=== PATIENT | female | born 1960 | race Caucasian/White ===

== ENCOUNTER → 2019-04-14 11:41 | Outpatient (CLI) | payer MEDICARE ==
[~2019-04-14 11:41] MED LIST: ESKALITH CR450 M1 PO; ESTRACE 0.5 MG0.5 MG PO; LEVOTHYROXINE50 MCG PO; RISPERDAL1 MG PO; XANAX0.5 MG PO
[2019-04-15 08:11] LABS: IMMUNOGLOBULIN A 221 mg/dL (87-352); IMMUNOGLOBULIN G 776 mg/dL (700-1600); IMMUNOGLOBULIN M 76 mg/dL (26-217)
[2019-04-15 08:40] VITALS: BMI 24.3
[2019-04-15 11:10] LABS: ANA REFLEX - DIRECT Negative (Negative)
[2019-04-16 06:09] LABS: IGG SUBCLASS 1 355 mg/dL (248-810); IGG SUBCLASS 2 289 mg/dL (130-555); IGG SUBCLASS 3 75 mg/dL (15-102); IGG SUBCLASS 4 5 mg/dL (2-96); IGGS - IGG SERUM 820 mg/dL (700-1600)
[2019-04-16 09:11] LABS: ANTI-GLOMERULAR BASMENT MEMBRN 2 units (0-20)
[2019-04-16 14:09] LABS: ANCA - ANTIMYELOPEROXIDASE <9.0 U/mL (0.0-9.0); ANCA - ANTIPROTEINASE 3 <3.5 U/mL (0.0-3.5); ANCA - ATYPICAL <1:20 titer (Neg:<1:20); ANCA - CYTOPLASMIC <1:20 titer (Neg:<1:20); ANCA - PERINUCLEAR <1:20 titer (Neg:<1:20)
[2019-04-18 18:07] LABS: IMMUNOGLOBULIN E 26 IU/mL (6-495)
== END | disposition home or self-care (01) ==
LOC: D.LABREF 11:41
PROVIDERS: ATTEND Internal Medicine Pulmonary Disease
DX: J18.9 Pneumonia, unspecified organism (principal); R04.2 Hemoptysis

== ENCOUNTER 2019-04-15 07:22 | Outpatient (CLI) | payer MEDICARE ==
[~2019-04-15] VITALS: Ht 172.7 cm; Wt 72.7 kg
[2019-04-15 07:45] LABS: BASOPHILS 0.3 % (0-2); EOSINOPHILS 4.5 % (0-7); HEMATOCRIT 40.8 % (36.0-48.0); HEMOGLOBIN 12.8 g/dL (12-16); IMMATURE GRANULOCYTES 0.3 % (0-5); LYMPHOCYTES 21.2 % (15-50); MCH 30.5 pg (26.0-34.0); MCHC 31.4 g/dL (31.0-37.0); MCV 97.4 fL (80.0-100.0); MEAN PLATELET VOLUME 8.9 fL (7.4-10.4); NEUTROPHILS 67.7 % (40-80); PLATELET COUNT 295 10x3/uL (130-400); RBC 4.19 10x6/uL (4.00-5.40); RDW 14.9 % (11.5-14.5); WBC 10.6 10x3/uL (4.8-10.8)
[2019-04-15 07:59] LABS: INR 0.98 (0.85-1.17); PROTIME 12.5 SECONDS (11.6-15.0)
[2019-04-15 08:40] VITALS: BP 125/79; Ht 172.7 cm; Wt 72.7 kg
--- NOTE | 2019-04-15 09:27 | NUR ---
DR. CAMEJO NOTIFIED AND REVIEWED PT'S BEHAVIOR AND ASSESSMENT RESULTS. PT IS A LOW RISK PER DR. CAMEJO. DR. CAMEJO STATED TO GIVE RESOURCES TO PT AT THE TIME OF DISCHARGE. NO FURTHER ORDERS AT THIS TIME. RESOURCES REVIEWED WITH PT AND SHE VERBALIZIED UNDERSTANDING.
--- NOTE | 2019-04-15 11:02 | NUR ---
0900 CALL OCEAN FREIGHT AGENT FOR MH CONSULT.
--- NOTE | 2019-04-15 11:03 | NUR ---
9892 MH CONSULT HAS BEEN COMPLETED.
--- NOTE | 2019-04-15 11:04 | NUR ---
0945 MENTAL HEALTH CONSULT COMPLETE. PATIENT CLEARED.
--- NOTE | 2019-04-15 12:15 | NUR ---
PATIENT TOLERATING CLEAR LIQUIDS AT THIS TIME, FULL LIQUIDS OFFERED
[2019-04-15] MEDS ORDERED: RISPERDAL1 MG PO (12:16)
[2019-04-15] MEDS ORDERED: LEVOTHYROXINE50 MCG PO (12:16)
[2019-04-15] MEDS ORDERED: ESTRACE 0.5 MG0.5 MG PO (12:16)
[2019-04-15] MEDS ORDERED: XANAX0.5 MG PO (12:17)
[2019-04-15] MEDS ORDERED: ESKALITH CR450 M1 PO (12:17)
--- NOTE | 2019-04-15 12:25 | NUR ---
PATIENT TOLERATING CLEAR AND FULL LIQUIDS, PATIENT DESIRES TO BE DISCHARGED. O2 SAT 93% ON RA. PIV DC'D WITH TIP INTACT, PATIENT DRESSING IN PERSONAL CLOTHING
--- NOTE | 2019-04-15 12:35 | NUR ---
DISCHARGE INSTRUCTIONS REVIEWED WITH PATIENT AND SPOUSE, DISCHARGED HOME VIA WHEELCHAIR TO PRIVATE VEHICLE
[2019-04-16 14:09] LABS: FUNGUS STAIN Final report (())
[2019-04-16 17:08] LABS: AFB SPECIMEN PROCESSING Concentration (())
[2019-04-20 17:08] LABS: FUNGAL - ASP FLAVUS Negative (Neg:<1:1); FUNGAL - ASP NIGER Negative (Neg:<1:1); FUNGAL - ASPER FUMIGATUS Negative (Neg:<1:1)
[2019-05-13 16:08] LABS: FUNGUS CULTURE RESULT 1 Penicillium species (()); FUNGUS MYCOLOGY CULTURE Final report (())
[2019-06-04 12:09] LABS: ACID FAST CULTURE Negative (()); ACID FAST SMEAR Negative (())
== END 2019-04-15 12:35 | disposition home or self-care (01) ==
LOC: D.OPS 07:22
PROVIDERS: ATTEND Internal Medicine Pulmonary Disease
DX: J18.9 Pneumonia, unspecified organism (principal); R04.2 Hemoptysis